=== PATIENT | female | born 1960 | race Caucasian/White ===

== ENCOUNTER → 2017-01-11 | Outpatient (CLI) | payer OTHER ==
[~2017-01-11] MED LIST: ABILIFY PO; ALBUTEROL17 GM INH; ALPRAZOLAM PO; AMBIEN PO; AMBIEN10 MG PO; ANTI-DIARRHEAL2 M1 PO; ASPIRIN PO; ASPIRIN81 M1 PO; AVANDIA PO; BENTYL20 MG PO; BENZONATATE PO; CELEXA PO; CEPHALEXIN250 MG PO; CIPRO PO; CLINDAMYCIN PO; CLONIDINE PO; COGENTIN1 M1 PO; COMBIVENT INH14.7 GM INH; CREON DR 12,001 EAC2 PO; CREON DR 12,001 EACH PO; CYMBALTA; CYMBALTA PO; DIABETA5 M1 PO; DICYCLOMINE HCL20 MG PO; DOC-Q-LACE100 MG PO; EFFEXOR PO; EFFEXOR75 MG PO; EXCEDRIN GELTAB1 TA1 PO; FIORINAL CAPSUL1 CAP PO; FLAGYL PO; FLEXERIL; FLOVENT HFA12 GM INH; FORTAMET1000 MG/B1 PO; FUROSEMIDE80 MG PO; GABAPENTIN600 MG PO; GABAPENTIN800 MG PO; GLIPIZIDE10 MG PO; GLUCOPHAGE XR500 MG PO; GLUCOTROL PO; GLUCOTROL10 MG PO; GOLYTELY4000 ML PO; HALDOL PO; HUMALOG100 UNIT/1 SUBQ; HYDROCODON-ACE1 EAC5 PO; HYDROCODON-ACE1 EAC9 PO; IBUPROFEN800 MG PO; IMDUR30 MG PO; IMMODIUM PO; KEFLEX PO; KEFLEX250 M1 PO; LAMICTAL PO; LANTUS100 U/M1 SQ; LANTUS100 U/ML SQ; LANTUS100 U/ML SUBQ; LASIX PO; LASIX80 MG PO; LEVAQUIN PO; LEVEMIR100 UNITS/ PO; LINZESS290 MCG PO; LIPITOR; LIPITOR PO; LISINOPRIL2.5 MG PO; LITHIUM PO; LORTAB 10-5001 EACH PO; LORTAB 10/500 T1 TAB; LORTAB 5/500 TA1 TA2 PO; LORTAB 7.5-5001 TAB PO; LORTAB PO; LYRICA100 MG PO; LYRICA75 MG PO; MEDROL PO; METFORMIN HCL1000 M1 PO; METFORMIN HCL500 M1 PO; METFORMIN PO; METHADONE PO; MIRALAX17 GM PO; MORPHINE IR PO; MUSCLE RELAXER PO; NEURONTIN PO; NEURONTIN600 MG PO; NEURONTIN800 MG PO; NICOTINE TRANSD21 MG EXT; NITROSTAT0.4 MG SL; NORCO 5/325 TAB1 TAB PO; ONGLYZA5 MG PO; PATIENT'S PHARMACY; PERCOCET 10/3251 TAB PO; PERCOCET 5-3251 TAB PO; PERCOCET5/325 PO; PERCOCET7.5 PO; PHENERGAN25 MG PO; PROAIR HFA8.5 GM IH; PROTONIX PO; REGLAN10 MG PO; REQUIP XL8 MG PO; REQUIP0.5 MG PO; REQUIP4 MG PO; ROBINUL1 MG PO; ROPINIROLE HCL4 M1 PO; S LAXATIVE PO; SKELAXIN PO; SOMA PO; TOPAMAX; TOPAMAX PO; ULTRAM PO; VICODIN 5/500 T1 TAB PO; VICODIN PO; ZESTRIL10 MG PO; ZITHROMAX PO; ZOCOR PO; ZOFRAN PO; ZOVIRAX800 MG PO
--- NOTE | ~2017-01-11 | BD1 ---
[facility] A Service of [facility] RADIOLOGY TEXT RESULTS PATIENT: CLAUDETTE BUCIO LOCATION: SRAD : 60 UNIT #: [id number] AGE: [address]: Zach Estes MD SEX: F ORDER DR: [id number] [place] [id number] O MR#: [id number] Acc #: [id number] NAME: CLAUDETTE BUCIO : 1960 SEX: F STUDY DATE/TIME: 01/11/2017 11:22 UNIT: SRAD ROOM: STUDY DESCRIPTION: Dexa Bone Dens 1+ Site Attending Physician: Zach Estes M.D. Referring Physician: Zach Estes M.D. Ordering Physician: Zach Estes M.D. Primary Care Physician: Familia Doherty M.D. MEDICAL IMAGING REPORT This report is preliminary unless electronic signature is present. EXAM Bone density spine and hip, 01/11/2017 HISTORY Osteoporosis. Smoker 48 years. Current smoker. Postmenopausal. FINDINGS Bone density scanning performed upper 4 lumbar vertebral segments and both proximal femurs [age]-year-old 130-pound female. No comparisons. L1-L4: Bone mineral density 0.956 g/cm2 for a T-score 1.9 standard deviations below mean for a reference population normal young individuals and Z-score 0.7 standard deviations below mean for age-matched population. Proximal left femur: Total bone mineral density 0.687 g/cm2 for T-score 2.5 standard deviation below mean for a reference population normal young individuals and a Z-score 1.6 standard deviation below mean for age-match population. Left femoral neck bone mineral density 0.634 g/cm2 T-score 2.9 standard deviations below mean for a reference population normal young individuals and a Z-score 1.7 standard deviations below mean for age-matched population. In the proximal right femur total bone density is 0.701 g/cm2 for a T-score 2.4 standard deviation below mean for a reference population normal young individuals and a Z-score 1.5 standard deviation below mean for age-match population. Right femoral neck bone mineral density 0.675 g/cm2 for a T-score 2.6 standard deviations below mean for a reference population normal young individuals and a Z-score 1.4 standard deviations below mean for age-matched population. IMPRESSION Osteoporosis in the left femoral neck. Patient is felt to be at [facility]. [facility] A Service of [facility] RADIOLOGY TEXT RESULTS PATIENT: CLAUDETTE BUCIO LOCATION: [facility] : 60 UNIT #: [id number] AGE: [address]: Zach Estes MD SEX: F ORDER DR: significantly increased risk for fracture. Treatment options may be considered. Continued surveillance is recommended. Dictated by... Zach Jean M.D. THIS IS AN ELECTRONICALLY VERIFIED REPORT Zach Jean M.D. at 01/13/2017 2:18 PM ADRIÁN/pola TD: 01/13/2017 02:19 JOB #: [id number] MEDICAL IMAGING REPORT Page 1 of 1
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
== END | disposition home or self-care (01) ==
LOC: SRAD 08:30
DX: M80.88XA Other osteoporosis with current pathological fracture, vertebra(e), initial encounter for fracture (principal); M80.052A Age-related osteoporosis with current pathological fracture, left femur, initial encounter for fracture
CPT/HCPCS: 72146; 77080

== ENCOUNTER → 2017-01-19 20:05 | Emergency (ER) | payer OTHER | END | disposition left against medical advice (07) | LOC: CED 20:05 | DX: Z53.21 Procedure and treatment not carried out due to patient leaving prior to being seen by health care provider (principal) ==

== ENCOUNTER 2017-03-08 00:06 | Inpatient (IN) | payer OTHER ==
--- NOTE | ~2017-03-08 | US77 ---
[facility] A Service of [facility] RADIOLOGY TEXT RESULTS PATIENT: CLAUDETTE BUCIO LOCATION: [facility] 57 : 60 UNIT #: [id number] AGE: [address]: Bayron Garcia MD SEX: F ORDER DR: [id number] [facility] [address] [place], [place] [address] [id number] I MR#: [id number] Acc #: [id number] NAME: CLAUDETTE BUCIO : 1960 SEX: F STUDY DATE/TIME: 03/08/2017 19:25 UNIT: [facility] ROOM: [facility] STUDY DESCRIPTION: US Kidney Bilateral Complete Attending Physician: Bayron Garcia M.D. Ordering Physician: Tavon Cervantes M.D. Primary Care Physician: Familia Doherty M.D. MEDICAL IMAGING REPORT This report is preliminary unless electronic signature is present EXAM Bilateral renal ultrasound, 03/08/2017 HISTORY Acute kidney injury. TECHNIQUE Leon-scale ultrasound imaging of the kidneys and urinary bladder. COMPARISON CT abdomen/pelvis earlier today. FINDINGS The kidneys are somewhat poorly visualized due to overlying bowel gas and patient body habitus. Both kidneys are normal in size and ultrasound appearance as imaged. No evidence of urinary obstruction. No visible nephrolithiasis or renal mass. Urinary bladder is unremarkable. IMPRESSION Negative bilateral renal ultrasound examination with limitations as noted above. No appreciable change since the earlier CT examination today. Dictated by... Greg Lafleur M.D. THIS IS AN ELECTRONICALLY VERIFIED REPORT Greg Lafleur M.D. at 03/09/2017 10:15 AM PASCUAL/pola TD: 03/09/2017 00:52 JOB #: [id number] [facility] A Service [facility] RADIOLOGY TEXT RESULTS PATIENT: CLAUDETTE BUCIO LOCATION: [facility] [id number] : 60 UNIT #: [id number] AGE: [address]: Bayron Garcia MD SEX: F ORDER DR: MEDICAL IMAGING REPORT Page 1 of 1 COPY
--- NOTE | ~2017-03-08 | CO ---
Unit #: [id number] #: [id number] Patient: LORRAINE BUCIO [id number] [facility] [address] [place], [place] [address] [id number] I MR#: [id number] NAME: LORRAINE BUCIO ROOM: 575 Age: 57 Sex: F Admission Date: 03/08/2017 : 1960 Attending Physician: Bayron Garcia M.D. Primary Care Physician: Familia Doherty M.D. CONSULTATION REPORT REASON FOR CONSULTATION Depression, anxiety. HISTORY OF PRESENT ILLNESS Ms. Lorraine Bucio is a 57-year-old white female, seen in room 575, bed 1, on 03/09/[address] [facility]. The patient reported that she was admitted due to gaining a lot of weight, retaining fluid. Patient dressed in hospital attire, lying comfortably in bed. Patient made good eye contact, able to answer questions appropriately. Patient denied any suicidal or homicidal ideation. Denied any psychotic symptoms but reported history of depression, anxiety. Patient has a history of previous treatment throughout outpatient clinic and treated in the past with Xanax, methadone, Effexor, Neurontin. Patient reported that she takes Neurontin and it is still not working. PAST PSYCHIATRIC HISTORY Remarkable for history of outpatient treatment, as mentioned above, through [facility] counselling services. MEDICAL HISTORY History of acute renal failure, anasarca, questionable acute exacerbation of congestive heart failure, frequent falls, diabetes, anemia, anxiety. MEDICATIONS Patient is on gabapentin, Humalog, Reliance, Requip, Levemir, loperamide. ALLERGIES Pravachol, NSAIDs, sulfa, lithium, fenofibrate, metformin, Vioxx. FAMILY HISTORY/SOCIAL HISTORY Patient reported that she has good support. No history of abuse. Denied any use of drugs or alcohol. REVIEW OF SYSTEMS A complete review of systems is unremarkable except as mentioned above. MENTAL STATUS EXAMINATION Vital signs - 97.6; 92; 20; 195/107. Oxygen saturation 99%. General appearance - Patient dressed casually in hospital attire, lying comfortably in bed. Attention span, concentration - Fair. Speech - Rapid. Pressured. Oriented to time, place and person. Mood and affect - Labile. Thought process - Circumstantial. Thought content - Guarded but denied any thoughts of harming self or others. Recent and remote memory - Fair. Language - Intact. Fund of knowledge - Fair. Insight and judgment - Fair Unit #: [id number] #: [id number] Patient: LORRAINE BUCIO to slightly impaired. DIAGNOSIS 1. PSYCHIATRIC: Major depressive disorder, recurrent, moderate, F33.2; anxiety disorder, NOS, F40.01. 2. SECONDARY DIAGNOSIS: Deferred. 3. MEDICAL DIAGNOSIS: Please refer to H and P. 4. STRESSOR: Psychosocial stressors. ASSESSMENT AND PLAN 1. Supportive psychotherapy and psychoeducation provided to the patient. 2. Educated about benefits and side effects of medication and course and prognosis of illness. 3. Recommending at this time to add Remeron 15 mg at bedtime for sleep and depression and Ambien 5 mg at bedtime for sleep. Will closely monitor. If needed, consider further adjustment in medication. Also advised Vistaril 50 mg t.i.d. We will continue to follow. Please feel free to call with any questions, telephone number . Dictated by... Vinayak Fernandez/kyra TD: 03/10/2017 08:43 JOB #: [id number] CONSULTATION REPORT Page 1 of 1 X Chai Hickey MD CONSULTATION REPORT
--- NOTE | ~2017-03-08 | CT4 ---
[facility] A Service of [facility] RADIOLOGY TEXT RESULTS PATIENT: CLAUDETTE BUCIO LOCATION: [facility] 575-01 : 60 UNIT #: [id number] AGE: [address]: Bayron Garcia MD SEX: F ORDER DR: [id number] [facility] [address] [place], [place] [address] [id number] I MR#: [id number] Acc #: [id number] NAME: CLAUDETTE BUCIO : 1960 SEX: F STUDY DATE/TIME: 03/08/2017 02:15 UNIT: CEDOF ROOM: 01716 STUDY DESCRIPTION: CT Abd and Pelv Wo Cont Attending Physician: Bayron Garcia M.D. Ordering Physician: Perry Miranda M.D. Primary Care Physician: Familia Doherty M.D. MEDICAL IMAGING REPORT This report is preliminary unless electronic signature is present EXAM CT abdomen and pelvis 03/08/2017 02:15 INDICATION Bloating and generalized abdominal pain with nausea, vomiting for 1 week. TECHNIQUE Axial images were obtained through the abdomen and pelvis following oral contrast administration. Multiplanar reformats were obtained. Comparison made with 08/31/2014. This CT examination was performed with one or more of the following radiation dose reduction techniques: automatic exposure control, adjustment of mA and/or kV according to patient size, and iterative reconstruction. FINDINGS ABDOMEN: There are small bilateral pleural effusions. There are infiltrates in both lung bases and there is septal thickening. This probably reflects pulmonary edema. Some of this could be due to atelectasis. Pneumonia is considered less likely. There is generalized anasarca. There is a small volume of ascites. Gallbladder surgically absent. No renal or ureteral stones are seen. There is no hydronephrosis. The unenhanced solid organs are grossly normal. The GI tract is within normal limits. No bowel obstruction is seen. PELVIS: There is anasarca. There is a trace amount of free fluid. There is sigmoid diverticulosis. No convincing evidence of diverticulitis. The appendix is normal. The bladder is normal. There are no lower ureteral stones. Uterus is surgically absent. Patient is status post L1 kyphoplasty. There are old appearing compression deformities at T10 and T11. IMPRESSION 1. Small bilateral pleural effusions with probable pulmonary edema in the [facility] A Service of [facility] RADIOLOGY TEXT RESULTS PATIENT: CLAUDETTE BUCIO LOCATION: [facility] 575-01 : 60 UNIT #: [id number] AGE: [address]: Bayron Garcia MD SEX: F ORDER DR: lung bases with some component of atelectasis. Pneumonia is considered less likely. 2. Fairly pronounced generalized anasarca. 3. Small volume of free fluid in the abdomen and pelvis. 4. Normal appendix. There is sigmoid diverticulosis without definite diverticulitis. GI tract is otherwise grossly normal. 5. No renal or ureteral stones. No hydronephrosis. 6. Hysterectomy and cholecystectomy. Dictated by... Bryce Silva Jr., M.D. THIS IS AN ELECTRONICALLY VERIFIED REPORT Bryce Silva Jr., M.D. at 03/08/2017 5:19 PM TACO/manjit TD: 03/08/2017 10:35 JOB #: [id number] MEDICAL IMAGING REPORT Page 1 of 1 COPY
--- NOTE | ~2017-03-08 | CO ---
Unit #: [id number] #: [id number] Patient: CLAUDETTE BUCIO [id number] [place] [id number]. [place], [place] [address] [id number] I MR#: [id number] NAME: CLAUDETTE BUCIO ROOM: 575 Age: 57 Sex: F Admission Date: 03/08/2017 : 1960 Attending Physician: Bayron Garcia M.D. Primary Care Physician: Familia Doherty M.D. CONSULTATION REPORT REASON FOR CONSULTATION Renal failure and hypertension. HISTORY OF PRESENT ILLNESS A 54-year-old female with significant past medical history of chronic kidney disease with creatinine of 1.6 about a year back. She was mainly admitted to the hospital, because of not feeling well, some increased shortness of breath, increased swelling of the lower extremity with extremely high blood pressure and she was supposed to see us in my office, but Dr. Doherty sent this patient to be seen in the office, but somehow she ended up in the hospital this time and the patient found to have creatinine of 3.1, and with bicarb level of 19, potassium of 5.2. She has significant edema of the lower extremities. She has also had some increasing shortness of breath recently. Her hemoglobin found to be 9.5, it was normal about a year back. She still smoking about three packs a day. Her urinalysis did show that she has significant proteinuria and repeat urine studies are still pending. The patient was seen by Dr. Dee on her last admission, but because the patient is going to be our office patient, will be seen by me at this time. PAST MEDICAL HISTORY Significant for diabetes mellitus, hypertension, irritable bowel syndrome, COPD, chronic smoking, some kind of psych problem being evaluated by [facility] couple of times. PAST SURGICAL HISTORY Significant for cardiac catheterization in the past and previous endoscopic and peptic ulcer disease. ALLERGIES The patient is allergic to sulfa, [place], Vioxx, morphine, Pravachol, fenofibrate. SOCIAL HISTORY She is a smoker. Does not drink alcohol. She smoked three packs a day for more than 30 to 40 years. FAMILY HISTORY Significant for diabetes. PHYSICAL EXAMINATION GENERAL: The patient is somewhat obese female, not in any acute distress. VITAL SIGNS: Last blood pressure is 160/80, pulse is 90, temperature is Unit #: [id number] #: [id number] Patient: CLAUDETTE BUCIO 98, respiratory rate is 20, oxygen saturation is 94%. HEAD AND NECK: Pupils are reactive to light. Extraocular movement intact. NECK: Supple. No JVD. No palpable lymph node in the neck. The patient has a slight bruises around the eyes. LUNGS: The patient has bilateral air entry with rhonchi, and no crackles. HEART: Regular rate and rhythm. No murmur. No gallop. ABDOMEN: Protuberant, soft, nontender. No hepatosplenomegaly. EXTREMITIES: 3+ edema. Peripheral pulses are palpable. NEUROLOGIC: Grossly nonfocal. DIAGNOSTIC STUDIES LABORATORY RESULTS: Showed the patient's creatinine is 3.1, bicarb is 21. Sodium is 135, potassium is 5.2, phosphorus 4.1. ASSESSMENT AND PLAN 1. Acute renal failure. 2. Chronic kidney disease, stage 3. 3. Uncontrolled blood pressure. 4. Hyperkalemia. 5. Some metabolic acidosis. 6. Accelerated hypertension. 7. Slight hypocalcemia. DISCUSSION It seems that patient has significant nephrotic syndrome and cause of nephrotic syndrome may be underlying diabetes mellitus, but may be contributed by some atherosclerotic disease. At this time, need to rule out any renal artery stenosis especially with significant history of smoking and accelerated blood pressure in the presence of significant edema and renal failure. Follow up with renal ultrasound. Follow up with repeat labs later today. As the patient has significant edema, echocardiogram was also ordered. Last echo was done more than 3 years back. Depending upon echocardiogram, further workup will be needed. Meanwhile, continue diuretics to improve the patient's blood pressure and volume status. Thank you, Dr. Munoz for letting me evaluate taking care of this patient. Dictated by... Vinayak Chavis/aydin TD: 03/09/2017 07:42 JOB #: [id number] Unit #: [id number] #: [id number] Patient: CLAUDETTE BUCIO CONSULTATION REPORT Page 1 of 1 X Tavon Cervantes MD CONSULTATION REPORT
--- NOTE | ~2017-03-08 | CT57 ---
[facility] A Service of [facility] RADIOLOGY TEXT RESULTS PATIENT: CLAUDETTE BUCIO LOCATION: [facility] 575-01 : 60 UNIT #: [id number] AGE: [address]: Bayron Garcia MD SEX: F ORDER DR: [id number] [facility] [address] [place], [place] [address] [id number] I MR#: [id number] Acc #: [id number] NAME: CLAUDETTE BUCIO : 1960 SEX: F STUDY DATE/TIME: UNIT: [facility] ROOM: [facility] STUDY DESCRIPTION: CT Chest Wo Cont Attending Physician: Bayron Garcia M.D. Ordering Physician: Davis Vaz M.D. Primary Care Physician: Familia Doherty M.D. MEDICAL IMAGING REPORT This report is preliminary unless electronic signature is present EXAM CT chest without contrast 03/09/2017 1032 hours HISTORY 57-year-old with shortness of air for a week, abdominal swelling. History of prior oral cancer. COMPARISON CT abdomen 03/08/2017, chest x-ray 03/08/[address] 03/11/2002 TECHNIQUE Helical noncontrasted images were obtained from the thoracic inlet through the adrenal glands. Sagittal and coronal reconstructions were performed. Total exam dl PA 768 mGy - cm. Note that the patient had refused this exam on 03/08/2017 because of claustrophobia. FINDINGS Images through the thoracic inlet demonstrate no thyroid mass or adenopathy. Images through the chest demonstrate a normal caliber aorta. Cardiac chambers and pericardium are normal. There are benign calcified right hilar, infrahilar and subcarinal nodes. The patient has a small dependent bilateral symmetric pleural effusions with minimal atelectasis at the bases. There is no definite pulmonary edema. The patient does have diffuse subcutaneous edema over the chest, flanks, breasts and abdomen consistent with diffuse anasarca. Findings are greater in the left breast than the right which may be due to positional changes. Underlying inflammatory breast carcinoma could have this appearance but given the generalized anasarca, I would favor that this is simply anasarca. [facility] A Service of [facility] RADIOLOGY TEXT RESULTS PATIENT: CLAUDETTE BUCIO LOCATION: [facility] 575-01 : 60 UNIT #: [id number] AGE: [address]: Bayron Garcia MD SEX: F ORDER DR: Limited views through the upper abdomen demonstrate retained contrast within the colon from yesterday's CT abdomen and pelvis. No acute findings. IMPRESSION 1. There is generalized diffuse subcutaneous edema over the chest, flanks and upper abdomen including the breasts left greater than right most likely representing diffuse anasarca. The presence of an inflammatory breast carcinoma is difficult to exclude given this appearance however given the findings on today's scan as well as the diffuse anasarca on yesterday's CT abdomen pelvis anasarca is favored for the etiology of the breast changes. 2. Small bilateral pleural effusions with mild basilar atelectasis. There is no evidence of pneumonia, edema or pericardial fluid. Dictated by... Kika Morris M.D. THIS IS AN ELECTRONICALLY VERIFIED REPORT Kika Morris M.D. at 03/09/2017 2:28 PM SMM/roberto TD: 03/09/2017 12:59 JOB #: [id number] MEDICAL IMAGING REPORT Page 1 of 1 COPY
--- NOTE | ~2017-03-08 | CO ---
Unit #: [id number] #: [id number] Patient: CLAUDETTE BUCIO [id number] [facility] [address]. [place], [place] [address] [id number] I MR#: [id number] NAME: CLAUDETTE BUCIO ROOM: 575 Age: 57 Sex: F Admission Date: 03/08/2017 : 1960 Attending Physician: Bayron Garcia M.D. Primary Care Physician: Familia Doherty M.D. Consultation Date: 03/08/2017 CONSULTATION REPORT DICTATED FOR Dr. Tejal García of [facility]. REASON FOR CONSULT CHF evaluation and management. HISTORY OF PRESENT ILLNESS The patient is a 57-year-old white female, who has a history of having a cardiac cath in 2010 with a 70% stenosis at the origin of the post LV branch of the RCA, hypertension, hyperlipidemia, diabetes, COPD, tobacco abuse, marijuana abuse, chronic pain, chronic kidney disease, history of alcohol, and history of noncompliance. The patient presented to the [facility] ED on 03/08/2017 with complaints of swelling in her abdomen as well as pain. She states it started a week ago or so, but has gotten significantly worse than it was worse yesterday. The patient also has had some pain in her bilateral lower extremities as well as swelling. The patient has also been nauseous, but denies any vomiting or diarrhea. No fevers. She does complain of being lightheaded at home with standing. The patient's was hypertensive on admission and has kind of sustained in the higher range with her blood pressure is ranging from 160 to 180 systolic over low 100 diastolic. Cardiac cath in 2010 secondary to an abnormal stress showed small vessel LAD that was normal and a normal left circumflex, posterior LV branch of the RCA with borderline significant stenosis with 70% at the origin. It was recommended that if the patient had any further chest pain or symptoms from that lesion, have FFR completed in order to determine the significance. The patient has not had any further workup done on that lesion as she is aware. Echo in 2010 showed an EF of 55%, trace MR, trace TR with no AR. REVIEW OF SYSTEMS See HPI. PAST MEDICAL HISTORY 1. CHF. 2. Hypertension. 3. Hyperlipidemia. 4. Diabetes. 5. COPD. 6. Crohn disease. 7. Chronic pain. 8. Chronic kidney disease. Unit #: [id number] #: [id number] Patient: CLAUDETTE BUCIO PAST SURGICAL HISTORY Includes; 1. Appendectomy. 2. Two C sections. 3. Hysterectomy. SOCIAL HISTORY The patient lives with her son, who has to help her with bathing and dressing. The patient does not do any housekeeping, cleaning, cooking, or anything for herself. The patient smokes three packs per day for the last year but prior to that was a two-pack per day smoker for 20+ years. She denies any alcohol abuse, but does report daily marijuana use. FAMILY HISTORY Dad of an WI at age 50 and mom of an WI at age 50. HOME MEDICATIONS Include; 1. Gabapentin 800 mg p.o. four times a day. 2. Humalog 10 units subcutaneously three times a day with meals. 3. Hydrocodone 10/325 four times a day as needed for pain. 4. Ropinirole 4 mg p.o. twice a day. 5. Levemir 12 units p.o. at bedtime. 6. Loperamide 2 mg p.o. twice a day as needed for loose stools. ALLERGIES Include pravastatin, NSAIDs, sulfa, lithium, fenofibrate, metformin, and Vioxx. PHYSICAL EXAMINATION GENERAL: This is a 57-year-old white female, who is alert and oriented x3, in no apparent distress. VITAL SIGNS: Blood pressure is 188/109, temperature 97.6, pulse 84, and respirations 20. HEAD AND NECK: JVD positive. No thyromegaly. No lymphadenopathy. No carotid bruits. CARDIOVASCULAR: S1 and S2. No S3 or S4. No clicks. No rubs. No murmurs. LUNGS: Diminished with crackles in bilateral bases. ABDOMEN: Soft. Tender to the left and right sides. EXTREMITIES: Positive edema in bilateral lower extremities. NEUROLOGICAL: No neuro deficits noted. DIAGNOSTIC STUDIES LABORATORY RESULTS: Include sodium 135, potassium 5.2, chloride 109, CO2 is 19, BUN 33, creatinine 3.1, and glucose 109. Hemoglobin 9.5, hematocrit 29, white count 9, and platelets are 183. UA showed protein and glucose, and blood. A culture was sent. Troponin of less than 0.05. IMAGING STUDIES: CT of the abdomen and pelvis showed small bilateral pleural effusions with probable pulmonary edema in the lung bases, generalized anasarca, small volume free fluid in abdomen and pelvis. IMPRESSION 1. Acute kidney injury. 2. Hypertension. 3. Fluid overload, possibly due to heart failure. Unit #: [id number] #: [id number] Patient: CLAUDETTE BUCIO 4. Tobacco abuse. 5. Chronic obstructive pulmonary disease. 6. Hyperlipidemia. 7. Diabetes. 8. Chronic pain. PLAN We will plan to start on p.o. hydralazine q.6 hours with parameters to hold as well as check a troponin level in morning. Renal has already ordered an echo, which will be checked to evaluate LV function. If the EF is below 50%, we will consider dobutamine drip. We will check a chest x-ray today and an EKG in the morning. We will also check fasting lipid panel, hemoglobin A1c, as well as BMP, magnesium, and phos in a.m. Dictated by... LAKISHA Moody TD: 03/09/2017 13:30 JOB #: [id number] CONSULTATION REPORT Page 1 of 1 X X CONSULTATION REPORT
--- NOTE | ~2017-03-08 | EKG ---
PATIENT: CLAUDETTE BUCIO UNIT #: [id number] Ventricular Rate: 85 BPM Atrial Rate: 85 BPM P-R Interval: 128 ms QRS Duration: 78 ms Q-T Interval: 398 ms QTC Calculation(Bezet): 473 ms P Firebaugh: 48 degrees Calculated R [place]: 17 degrees Calculated T Fireb[place]: 47 degrees Diagnosis Line: Normal sinus rhythm Diagnosis Line: Normal ECG Diagnosis Line: When compared with ECG of 20-DEC-2014 07:06, Diagnosis Line: No significant change was found Diagnosis Line: Confirmed by VALERIANO DELGADO MD ([id number]) on Diagnosis Line: 03/09/2017 1:29:39 PM INTERPRETING MD: DANNY REN
--- NOTE | ~2017-03-08 | HP ---
Unit #: [id number] #: [id number] Patient: LORRAINE BUCIO [id number] [address] [address] [id number] I MR#: [id number] NAME: LORRAINE BUCIO ROOM: 575 Age: 57 Sex: F Admission Date: 03/08/2017 : 1960 Attending Physician: Bayron Garcia M.D. Primary Care Physician: Familia Doherty M.D. HISTORY AND PHYSICAL ADMISSION DIAGNOSES 1. Acute renal failure. 2. Anasarca. 3. Questionable acute exacerbation of congestive heart failure. 4. Questionable acute exacerbation of chronic obstructive pulmonary disease. 5. Continues tobacco use. 6. Frequent falls. 7. Diabetes. 8. Anemia of chronic disease. 9. Anxiety. HISTORY OF PRESENT ILLNESS Ms. Lorraine Bucio is a 57-year-old female, patient of Dr. Garcia, who comes to the emergency room with complaints of generalized swelling. States that she gained about 30-plus pounds in the last three or four days. Also complains of some shortness of air and has to sleep at night propped up. Also, complains of some severe anxiety secondary to wanting to go down to smoke. Denies any chest pain. Denies any headache, dizziness. Denies any fever or chills. Denies any unusual shortness of air. States that she usually stays short of air secondary to her COPD yet she continues to smoke three packs per day. Denies any syncopal episode. Denies any nausea, vomiting, diarrhea, or abdominal pain. Complains of generalized swelling in her abdomen. Complains of generalized swelling in her legs and weight gain. She also had been falling recently. The last time she fell she was evaluated in the ER and was discharged. She does still have bruising around the left face from the last fall. She was admitted overnight. She was a Code [place] today, threatening to leave and has been aggravated and inappropriate with the staff. REVIEW OF SYSTEMS Twelve-point review of systems on this patient is basically negative except as above. PAST MEDICAL HISTORY Significant for: 1. History of diabetes. 2. Peripheral neuropathy. 3. Anxiety. 4. Diastolic dysfunction. 5. Chronic pain issues. 6. COPD. 7. Peptic ulcer disease. 8. History of pancreatitis. Unit #: [id number] #: [id number] Patient: LORRAINE BUCIO 9. History of upper GI bleed. 10. History of tongue cancer. PAST SURGICAL HISTORY Significant for: 1. Carpal tunnel release. 2. Abdominal hysterectomy. 3. x3. 4. Colonoscopy. 5. ERCP with cholecystectomy. 6. I and D for breast abscess. HOME MEDICATIONS Apparently, she was takin. Gabapentin. 2. Humalog. 3. [place]. 4. Requip. 5. Levemir. 6. Loperamide. ALLERGIES 1. Pravachol. 2. NSAIDs. 3. Sulfa drugs. 4. [place]ke. 5. Fenofibrate. 6. Metformin. 7. Vioxx. SOCIAL HISTORY She smokes three packs per day and has been a lifetime smoker. Denies any alcohol or illicit drugs. FAMILY HISTORY Unremarkable. PHYSICAL EXAMINATION VITAL SIGNS: BP 188/109, heart rate 87, respirations 20, temperature 97.6. GENERAL: The patient is a 57-year-old female who looks much older than stated age. HEENT: Head with still old bruising present around the left face, the left periorbital area, and also perioral area on the left there still some bruising. Pupils equal, round, reactive to light and accommodation. Extraocular muscles are intact. Oropharynx is clear. NECK: Supple. No mass, no JVD, no bruits. LUNGS: Diminished at the bilateral bases with mild expiratory wheezing. HEART: S1, S2. No murmurs. ABDOMEN: Soft, nontender, obese. Bowel sounds are diminished. LOWER EXTREMITIES: 2 to 3+ edema. NEUROLOGIC: Patient grossly intact without any focal deficits. Looks anxious. DIAGNOSTIC STUDIES LABORATORY: Set of cardiac enzymes negative. Chemistry significant for BUN 33, creatinine 3.1, potassium 5.2, albumin 2.1. White count 9.0, hemoglobin 9.5, hematocrit 29. Unit #: [id number] #: [id number] Patient: LORRAINE BUCIO IMAGING: CT abdomen and pelvis was done which showed small bilateral pleural effusions, probably pulmonary edema without atelectasis. Generalized anasarca. Free fluid in the abdomen and pelvis, small volume. ASSESSMENT AND PLAN 1. Acute kidney injury with the generalized anasarca status post nephrology evaluation. Starting on Lasix. Avoid nephrotoxic drugs. Follow Nephrology recommendations. 2. Questionable acute exacerbation of diastolic congestive heart failure. Will check 2D echo. Again, is getting diuresed by Nephrology. Will get Cardiology evaluation. Cardiac enzymes negative. 3. Chronic obstructive pulmonary disease with questionable exacerbation. Will get Pulmonary on board. 4. Continues tobacco use. Counseled on the importance of quitting. Continue patch. 5. Frequent falls. Will need PT/OT evaluation. 6. Diabetes. Will resume home medications. 7. Anemia of chronic disease. Monitor. 8. Anxiety. Start on hydroxyzine. Consult Dr. Hickey. 9. GI and DVT prophylaxis with some Pepcid and Lovenox. 10. Hypertension. Will treat with hydralazine p.r.n. Continue home medications. 11. Transfer to a telemetry bed. Dictated by Vinayak Story/amanda TD: 03/08/2017 15:59 JOB #: [id number] HISTORY AND PHYSICAL Page 1 of 1 X Severo Munoz MD X HISTORY AND PHYSICAL
--- NOTE | ~2017-03-08 | CR72 ---
[facility] A Service of [facility] & [facility] RADIOLOGY TEXT RESULTS PATIENT: CLAUDETTE BUCIO LOCATION: [facility] 575-01 : 60 UNIT #: [id number] AGE: [address]: Bayron Garcai MD SEX: F ORDER DR: [id number] [facility] [address] [place], [place] [address] [id number] I MR#: [id number] Acc #: [id number] NAME: CLAUDETTE BUCIO : 1960 SEX: F STUDY DATE/TIME: 03/08/2017 17:22 UNIT: [facility] ROOM: [facility] STUDY DESCRIPTION: CR Chest Single View Portable Attending Physician: Bayron Garcia M.D. Ordering Physician: Tejal García M.D. Primary Care Physician: Familia Doherty M.D. MEDICAL IMAGING REPORT This report is preliminary unless electronic signature is present EXAM AP portable chest 03/08/2017 HISTORY 57-year-old female inpatient with shortness of air and cough today. History of COPD. TECHNIQUE AP portable chest x-ray. FINDINGS The exam shows patchy infiltrates in both lung bases, greater on the left, new since the previous study of 12/20/2014. Lung volumes are chronically low. Upper lungs are clear. Heart size is within normal limits. IMPRESSION Bibasilar pulmonary infiltrates, greater on the left. Low lung volumes. Dictated by... Greg Lafleur M.D. THIS IS AN ELECTRONICALLY VERIFIED REPORT Greg Lafleur M.D. at 03/09/2017 10:15 AM PASCUAL/darleen TD: 03/09/2017 01:33 JOB #: [id number] MEDICAL IMAGING REPORT Page 1 of 1 COPY
--- NOTE | ~2017-03-08 | EKG ---
PATIENT: CLAUDETTE BUCIO UNIT #: [id number] Ventricular Rate: 89 BPM Atrial Rate: 89 BPM P-R Interval: 142 ms QRS Duration: 64 ms Q-T Interval: 382 ms QTC Calculation(Bezet): 464 ms P Lyons: 51 degrees Calculated R Lyons: 55 degrees Calculated T Lyons: 32 degrees Diagnosis Line: Normal sinus rhythm Diagnosis Line: Low voltage QRS Diagnosis Line: Borderline ECG Diagnosis Line: When compared with ECG of 08-MAR-2017 14:06, Diagnosis Line: (unconfirmed) Diagnosis Line: No significant change was found Diagnosis Line: Confirmed by GREG TAMAYO MD ([id number]) on Diagnosis Line: 03/09/2017 9:44:41 PM INTERPRETING MD: PK
[~2017-03-08 00:06] MED LIST changes: -ANTI-DIARRHEAL2 M1 PO; -HUMALOG100 UNIT/1 SUBQ; -LEVEMIR100 UNITS/ PO; -ROPINIROLE HCL4 M1 PO
[2017-03-08 00:34] LABS: POC - CKMB 11.7 ng/mL (0.0-7.9); POC - TROPONIN <0.05 ng/mL (<=0.05)
[2017-03-08 01:06] LABS: BASOPHIL# 0.1 X10e3 (0-0.3); BASOPHIL% 0.9 % (0-2.5); EOSINOPHIL# 0.2 X10e3 (0-0.7); EOSINOPHIL% 2.1 % (0.0-7.0); HEMATOCRIT 29.6 % (35.0-45.0); HEMOGLOBIN 9.8 gm/dL (12.0-16.0); LYMPHOCYTE# 1.3 X10e3 (1.0-3.5); LYMPHOCYTE% 15.4 % (17.0-45.0); MEAN CELL VOLUME 85.7 FL (83-96); MEAN CORPUSCULAR HEMOGLOBIN 28.3 PG (28-34); MEAN CORPUSCULAR HGB CONC 33.1 g/dL (30-36); MONOCYTE# 0.3 X10e3 (0-1.0); MONOCYTE% 3.4 % (3.0-12.0); NEUTROPHIL# 6.6 X10e3 (1.5-7.1); NEUTROPHIL% 78.2 % (40-75); PLATELET COUNT 203 X10e3 (140-420); RED BLOOD COUNT 3.45 X10e (3.90-5.30); RED CELL DISTRIBUTION WIDTH 15.6 % (11.0-15.5); WHITE BLOOD COUNT 8.5 X10e3 (4.0-10.5)
[2017-03-08 01:07] LABS: URINE SOURCE CLEAN CATCH
[2017-03-08 01:12] LABS: URINE APPEARANCE CLEAR; URINE BILIRUBIN NEG (NEG); URINE BLOOD 2+ (NEG); URINE COLOR YELLOW; URINE GLUCOSE 250 MG/DL (NEG); URINE KETONE NEG (NEG); URINE LEUKOCYTE ESTERASE NEG (NEG); URINE NITRATE NEG (NEG); URINE PH 6.5 (5-8); URINE PROTEIN 3+ (NEG); URINE SPECIFIC GRAVITY 1.016 (1.003-1.035); URINE UROBILINOGEN 0.2 MG/DL (NEG)
[2017-03-08 01:13] LABS: DIFF IND NO
[2017-03-08 01:14] LABS: CULTURE INDICATED? YES; URINE BACTERIA AUWI 1+ (NEGATIVE); URINE SQUAMOUS EPITHELIAL CELL OCC /[HPF]
[2017-03-08 01:31] LABS: ALBUMIN SERUM 2.1 g/dL (3.5-5.0); ALKALINE PHOSPHATASE 62 U/L (32-92); ALT (SGPT) 21 U/L (10-40); AMYLASE 22 U/L (0-46); AST (SGOT) 33 U/L (10-42); BILIRUBIN,TOTAL 0.4 mg/dL (0.2-2.0); BLOOD UREA NITROGEN 33 mg/dL (9-23); BUN/CREATININE RATIO 10.31; CALCIUM SERUM 6.9 mg/dL (8.4-10.2); CARBON DIOXIDE 19 mmol/L (22-31); CHLORIDE 107 mmol/L (100-111); CREATININE SERUM 3.2 mg/dL (0.6-1.4); GLOM FILT RATE Estimated 15.3 mL/min (>60); GLUCOSE FASTING 130 mg/dL (70-110); LIPASE 27 U/L (22-51); POTASSIUM 4.9 mmol/L (3.5-5.1); PROTEIN TOTAL SERUM 5.2 g/dL (6.0-8.3); SODIUM 133 mmol/L (135-145)
[2017-03-08 01:33] LABS: BILIRUBIN, DIRECT <0.1 mg/dL (0.0-0.2); BILIRUBIN,INDIRECT 0.3 mg/dL (0.0-0.9)
[2017-03-08] MEDS ORDERED: GABAPENTIN800 MG PO (06:04)
[2017-03-08] MEDS ORDERED: HUMALOG100 UNIT/1 SUBQ (06:06)
[2017-03-08] MEDS ORDERED: HYDROCODON-ACE1 EAC5 PO (06:07)
[2017-03-08] MEDS ORDERED: ROPINIROLE HCL4 M1 PO (06:08)
[2017-03-08] MEDS ORDERED: LEVEMIR100 UNITS/ PO (06:09)
[2017-03-08] MEDS ORDERED: ANTI-DIARRHEAL2 M1 PO (06:13)
[2017-03-08 07:00] LABS: BASOPHIL% 0.4 % (0-2.5); EOSINOPHIL# 0.2 X10e3 (0-0.7); EOSINOPHIL% 2.2 % (0.0-7.0); HEMOGLOBIN 9.5 gm/dL (12.0-16.0); LYMPHOCYTE# 1.3 X10e3 (1.0-3.5); LYMPHOCYTE% 14.5 % (17.0-45.0); MEAN CELL VOLUME 85.2 FL (83-96); MEAN CORPUSCULAR HGB CONC 32.9 g/dL (30-36); MEAN PLATELET VOLUME 7.7 FL (6.5-11.5); MONOCYTE# 0.5 X10e3 (0-1.0); MONOCYTE% 5.5 % (3.0-12.0); NEUTROPHIL# 6.9 X10e3 (1.5-7.1); NEUTROPHIL% 77.4 % (40-75); PLATELET COUNT 183 X10e3 (140-420); RED CELL DISTRIBUTION WIDTH 15.7 % (11.0-15.5)
[2017-03-08 07:02] LABS: DIFF IND NO
[2017-03-08 07:16] LABS: BUN/CREATININE RATIO 10.64; CALCIUM SERUM 6.9 mg/dL (8.4-10.2); CREATININE SERUM 3.1 mg/dL (0.6-1.4); GLOM FILT RATE Estimated 15.9 mL/min (>60); POTASSIUM 5.2 mmol/L (3.5-5.1)
[2017-03-08 18:53] LABS: CREATININE,RANDOM URINE 20 mg/dL; SODIUM URINE RANDOM 109 mmol/L; TOTAL PROTEIN,RANDOM URINE 280 mg/dl (<10)
[2017-03-09 05:36] LABS: HEMATOCRIT 29.8 % (35.0-45.0); MEAN CELL VOLUME 84.5 FL (83-96); MEAN CORPUSCULAR HEMOGLOBIN 28.3 PG (28-34); MEAN CORPUSCULAR HGB CONC 33.4 g/dL (30-36); MEAN PLATELET VOLUME 7.8 FL (6.5-11.5); RED BLOOD COUNT 3.53 X10e (3.90-5.30); RED CELL DISTRIBUTION WIDTH 15.6 % (11.0-15.5); WHITE BLOOD COUNT 6.5 X10e3 (4.0-10.5)
[2017-03-09 06:53] LABS: ALBUMIN SERUM 1.9 g/dL (3.5-5.0); BILIRUBIN,TOTAL 0.4 mg/dL (0.2-2.0); BUN/CREATININE RATIO 12.42; CALCIUM SERUM 7.3 mg/dL (8.4-10.2); CREATININE SERUM 3.3 mg/dL (0.6-1.4); GLOM FILT RATE Estimated 14.8 mL/min (>60); MAGNESIUM 2.1 mg/dL (1.6-3.0); PHOSPHOROUS 4.7 mg/dL (2.5-4.6); PROTEIN TOTAL SERUM 4.6 g/dL (6.0-8.3)
[2017-03-09 06:57] LABS: POTASSIUM 5.5 mmol/L (3.5-5.1)
[2017-03-09 16:26] LABS: BUN/CREATININE RATIO 12.94; CALCIUM SERUM 7.5 mg/dL (8.4-10.2); CREATININE SERUM 3.4 mg/dL (0.6-1.4); GLOM FILT RATE Estimated 14.2 mL/min (>60)
[2017-03-09 16:29] LABS: POTASSIUM 5.7 mmol/L (3.5-5.1)
[2017-03-10 08:14] LABS: HEMATOCRIT 27.8 % (35.0-45.0); HEMOGLOBIN 9.1 gm/dL (12.0-16.0); MEAN CELL VOLUME 85.6 FL (83-96); MEAN CORPUSCULAR HEMOGLOBIN 28.1 PG (28-34); MEAN CORPUSCULAR HGB CONC 32.8 g/dL (30-36); MEAN PLATELET VOLUME 8.1 FL (6.5-11.5); RED BLOOD COUNT 3.25 X10e (3.90-5.30); RED CELL DISTRIBUTION WIDTH 15.7 % (11.0-15.5)
[2017-03-10 08:19] LABS: WHITE BLOOD COUNT 9.8 X10e3 (4.0-10.5)
[2017-03-10 09:21] LABS: BUN/CREATININE RATIO 13.82; CALCIUM SERUM 7.9 mg/dL (8.4-10.2); CREATININE SERUM 3.4 mg/dL (0.6-1.4); GLOM FILT RATE Estimated 14.2 mL/min (>60)
[2017-03-10 09:26] LABS: POTASSIUM 5.6 mmol/L (3.5-5.1)
[2017-03-11 13:22] LABS: ALDOSTERONE SERUM 2 ng/dL (***)
== END 2017-03-10 10:27 | disposition left against medical advice (07) | DRG 682 ==
LOC: CED 00:06 → C5C 06:16 → C2A 06:16 → CEDOF 06:16 → C2A 10:46 → C5C 14:52
PROVIDERS: Emergency Medicine; Hospitalist; Internal Medicine; Internal Medicine Nephrology
PROC: B246ZZZ Ultrasonography of Right and Left Heart (ICD-10-PCS; principal; 2017-03-09)
DX: N17.9 Acute kidney failure, unspecified (principal); I50.33 Acute on chronic diastolic (congestive) heart failure; F33.2 Major depressive disorder, recurrent severe without psychotic features; E11.22 Type 2 diabetes mellitus with diabetic chronic kidney disease; E87.2 Acidosis; I13.0 Hypertensive heart and chronic kidney disease with heart failure and stage 1 through stage 4 chronic kidney disease, or unspecified chronic kidney disease; J44.1 Chronic obstructive pulmonary disease with (acute) exacerbation; Z91.19 Patient's noncompliance with other medical treatment and regimen; E78.5 Hyperlipidemia, unspecified; N18.3 Chronic kidney disease, stage 3 (moderate); F17.210 Nicotine dependence, cigarettes, uncomplicated; Z79.4 Long term (current) use of insulin; F12.10 Cannabis abuse, uncomplicated; G89.29 Other chronic pain; Z90.710 Acquired absence of both cervix and uterus; Z90.49 Acquired absence of other specified parts of digestive tract; Z88.2 Allergy status to sulfonamides; Z88.8 Allergy status to other drugs, medicaments and biological substances; G62.9 Polyneuropathy, unspecified; Z85.810 Personal history of malignant neoplasm of tongue; Z91.81 History of falling; D63.1 Anemia in chronic kidney disease; F41.9 Anxiety disorder, unspecified; R77.9 Abnormality of plasma protein, unspecified; K58.9 Irritable bowel syndrome, unspecified; Z83.3 Family history of diabetes mellitus; E87.5 Hyperkalemia; E83.52 Hypercalcemia
CPT/HCPCS: 36415; 71010; 71250; 74176; 76770; 80048; 80053; 80061; 80076; 81003; 82088; 82150; 82553; 82570; 82947; 83036; 83690; 83735; 84100; 84132; 84156; 84244; 84300; 84443; 84484; 85025; 85027; 87086; 93005; 93306; 94640; 94760; 96374; 96375; 99285; J0360; J1170; J1650; J1815; J1940; J2270; J2405; J2920

== ENCOUNTER 2017-04-04 20:23 | Emergency (ER) | payer OTHER ==
[~2017-04-04 20:23] MED LIST changes: +ANTI-DIARRHEAL2 M1 PO; +HUMALOG100 UNIT/1 SUBQ; +LEVEMIR100 UNITS/ PO; +ROPINIROLE HCL4 M1 PO
== END 2017-04-04 22:03 | disposition left against medical advice (07) ==
LOC: CED 20:23
DX: R10.9 Unspecified abdominal pain (principal); I50.9 Heart failure, unspecified; E11.9 Type 2 diabetes mellitus without complications; F17.210 Nicotine dependence, cigarettes, uncomplicated; Z90.49 Acquired absence of other specified parts of digestive tract; Z90.710 Acquired absence of both cervix and uterus
CPT/HCPCS: 99283